=== PATIENT | female | born 1980 | race Caucasian/White ===

== ENCOUNTER 2018-01-21 17:48 | Emergency (ER) | payer MEDICAID, OTHER ==
[2018-01-21 19:10] LABS: HEMATOCRIT 35.4 % (37.0-47.0); HEMOGLOBIN 12.4 g/dl (12.0-16.0); MEAN CORPUSCULAR HEMOGLOBIN 28.1 pg (29.0-33.0); MEAN CORPUSCULAR VOLUME 80.3 fl (82.0-101.0); MEAN PLATELET VOLUME 10.2 fl (7.4-10.4); PLATELET COUNT 177 10^3/UL (140-415); RED BLOOD COUNT 4.41 10^6/ul (4.20-5.40); RED CELL DISTRIBUTION WIDTH 14.1 % (11.5-14.5)
[2018-01-21 19:12] LABS: ADD MAN DIFF? YES; POSITIVE DIFF @See below
[2018-01-21] MEDS: SODIUM CHLORIDE 0.9% 1L BAG IV* (19:15)
[2018-01-21] MEDS: ACETAMINOPHEN 325 MG TAB PO (19:15)
[2018-01-21 19:20] LABS: PROTIME 13.3 Sec (11.9-14.9)
[2018-01-21 19:21] LABS: PARTIAL THROMBOPLASTIN TIME 31.8 Sec (25.0-35.0)
[2018-01-21 19:22] LABS: ADD UMIC YES; UR ASCORBIC ACID NEGATIVE (NEGATIVE); UR BACTERIA FEW /HPF (NONE SEEN); UR BILIRUBIN (Dip) NEGATIVE (NEGATIVE); UR BLOOD (Dip) 2+ mg/dL (NEGATIVE); UR CLARITY CLEAR (CLEAR); UR COLOR YELLOW (YELLOW); UR GLUCOSE (Dip) 3+ mg/dL (NEGATIVE); UR KETONES (Dip) 1+ mg/dL (NEGATIVE); UR LEUKOCYTE ESTERASE (Dip) NEGATIVE Leu/ul (NEGATIVE); UR NITRITE (Dip) NEGATIVE (NEGATIVE); UR RBC 11 /HPF (0-5); UR TOTAL PROTEIN (Dip) NEGATIVE (NEGATIVE); UR UROBILINOGEN (Dip) NEGATIVE (NEGATIVE); UR WBC 10 /HPF (0-5)
[2018-01-21 19:31] LABS: LACTIC ACID 1.7 mmol/L (0.5-2.0)
[2018-01-21 19:34] LABS: ALANINE AMINOTRANSFERASE 177 IU/L (13-69); ALBUMIN 3.5 g/dl (3.3-4.9); ALBUMIN/GLOBULIN RATIO 0.85; ALKALINE PHOSPHATASE 197 IU/L (42-121); ANION GAP 15 (8-16); ASPARTATE AMINO TRANSFERASE 128 IU/L (15-46); BILIRUBIN,INDIRECT 0.5 mg/dl (0-1.1); BILIRUBIN,TOTAL 0.5 mg/dl (0.2-1.3); BLOOD UREA NITROGEN 3 mg/dl (7-20); CALCIUM 8.3 mg/dl (8.4-10.2); CARBON DIOXIDE 20 mmol/L (21-31); CHLORIDE 99 mmol/L (97-110); CREATININE 0.54 mg/dl (0.44-1.00); GLUCOSE 252 mg/dl (70-220); POTASSIUM 3.7 mmol/L (3.5-5.1); SODIUM 130 mmol/L (135-144); TOTAL PROTEIN 7.6 g/dl (6.1-8.1)
[2018-01-21 19:44] LABS: TROPONIN-I 0.035 ng/ml (0.000-0.120)
[2018-01-21] MEDS: CEFTRIAXONE 1 GM/50 ML (PMX) 50 ML IVPB (20:05)
[2018-01-21 20:44] LABS: BAND NEUTROPHILS #M 0.5 10^3/ul (0.0-0.6); BAND NEUTROPHILS % (M) 9 % (0-4); EOSINOPHILS % (M) 2 % (0-7); GIANT THROMBO% (M) 1 % (0-0); LYMPHOCYTES #M 0.9 10^3/ul (0.8-2.9); LYMPHOCYTES % (M) 16 % (15-51); METAMYELOCYTES %M 1 % (0-0); MONOCYTE #M 0.2 10^3/ul (0.3-0.9); MONOCYTES % (M) 4 % (0-11); PLATELET ESTIMATE NORMAL; REACTIVE LYMPHOCYTES #M 0.1 10^3/ul (0.0-0.0); REACTIVE LYMPHOCYTES% (M) 2 % (0-0); SEGMENTED NEUTROPHILS (M) % 66 % (39-77); SMUDGE%M 5 % (0-0)
[2018-01-21] MEDS: metroNIDAZOLE 500 MG/NS (PMX) 100 ML IVPB (21:30)
[2018-01-21 22:49] LABS: LACTIC ACID 1.1 mmol/L (0.5-2.0)
== END 2018-01-21 22:29 | disposition home or self-care (01) ==
LOC: E/R 17:48
DX: K57.32 Diverticulitis of large intestine without perforation or abscess without bleeding (principal); N30.90 Cystitis, unspecified without hematuria; E11.9 Type 2 diabetes mellitus without complications; I10 Essential (primary) hypertension; R10.9 Unspecified abdominal pain; Z79.84 Long term (current) use of oral hypoglycemic drugs
CPT/HCPCS: 36415; 71045; 74176; 80053; 81001; 81025; 83605; 84484; 85025; 85610; 85730; 87040; 87086; 93005; 96374; 96375; 99285-25

== ENCOUNTER 2018-03-01 11:05 | Inpatient (IN) | payer MEDICAID ==
[2018-03-01] MEDS: morphine 4 MG/ML VIAL IV (12:04)
[2018-03-01] MEDS: ONDANSETRON 4 MG INJ IV (12:04)
[2018-03-01] MEDS: SODIUM CHLORIDE 0.9% 1L BAG IV* (12:04)
[2018-03-01 12:09] LABS: ADD MAN DIFF? NO
[2018-03-01 12:17] LABS: ADD UMIC YES; UR ASCORBIC ACID NEGATIVE (NEGATIVE); UR BILIRUBIN (Dip) NEGATIVE (NEGATIVE); UR BLOOD (Dip) 1+ mg/dL (NEGATIVE); UR CLARITY CLEAR (CLEAR); UR COLOR YELLOW (YELLOW); UR GLUCOSE (Dip) 3+ mg/dL (NEGATIVE); UR KETONES (Dip) 1+ mg/dL (NEGATIVE); UR LEUKOCYTE ESTERASE (Dip) NEGATIVE Leu/ul (NEGATIVE); UR NITRITE (Dip) NEGATIVE (NEGATIVE); UR RBC 0 /HPF (0-5); UR SPECIFIC GRAVITY (Dip) 1.022 (1.003-1.030); UR TOTAL PROTEIN (Dip) NEGATIVE (NEGATIVE); UR UROBILINOGEN (Dip) NEGATIVE (NEGATIVE); UR WBC 1 /HPF (0-5)
[2018-03-01 12:20] LABS: BASOPHILS % 0.2 % (0.0-2.0); EOSINOPHILS % 0.2 % (0.0-7.0); HEMATOCRIT 40.9 % (37.0-47.0); LYMPHOCYTES # 1.7 10^3/ul (0.8-2.9); MEAN CORPUSCULAR HEMOGLOBIN 27.5 pg (29.0-33.0); MEAN CORPUSCULAR HGB CONC 34.2 g/dl (32.0-37.0); MEAN CORPUSCULAR VOLUME 80.4 fl (82.0-101.0); MONOCYTE # 1.1 10^3/ul (0.3-0.9); MONOCYTES % 6.9 % (0.0-11.0); NEUTROPHIL # 12.5 10^3/ul (1.6-7.5); NEUTROPHILS % 80.9 % (39.0-77.0); PLATELET COUNT 232 10^3/UL (140-415); RED BLOOD COUNT 5.09 10^6/ul (4.20-5.40); RED CELL DISTRIBUTION WIDTH 13.4 % (11.5-14.5)
[2018-03-01 12:20] LABS: WHITE BLOOD COUNT 15.4 10^3/ul (4.8-10.8)
[2018-03-01 12:59] LABS: ALANINE AMINOTRANSFERASE 25 IU/L (13-69); ALBUMIN 3.7 g/dl (3.3-4.9); ALKALINE PHOSPHATASE 110 IU/L (42-121); ANION GAP 20 (8-16); ASPARTATE AMINO TRANSFERASE 18 IU/L (15-46); BILIRUBIN,INDIRECT 1.1 mg/dl (0-1.1); BILIRUBIN,TOTAL 1.1 mg/dl (0.2-1.3); BLOOD UREA NITROGEN 12 mg/dl (7-20); CALCIUM 9.8 mg/dl (8.4-10.2); CARBON DIOXIDE 23 mmol/L (21-31); CHLORIDE 96 mmol/L (97-110); CREATININE 0.56 mg/dl (0.44-1.00); LIPASE 53 U/L (23-300); POTASSIUM 4.3 mmol/L (3.5-5.1); SODIUM 135 mmol/L (135-144); TOTAL PROTEIN 8.3 g/dl (6.1-8.1)
[2018-03-01 13:04] LABS: GLUCOSE 429 mg/dl (70-220)
[2018-03-01] MEDS ORDERED: ACETAMINOPHEN 325 MG TAB PO (14:00)
[2018-03-01] MEDS ORDERED: ONDANSETRON 4 MG INJ IV (14:00)
[2018-03-01] MEDS: INSULIN LISPRO 100 UNIT/ML VIAL SC (14:07)
[2018-03-01] MEDS: PIPER-TAZO 3.375 GM IV (PMX) 100 ML IVPB ×2 (14:10→21:21)
[2018-03-01 14:34] LABS: LACTIC ACID 1.4 mmol/L (0.5-2.0)
[2018-03-01] MEDS ORDERED: NACL 0.9% 3 ML SYG IV (15:30)
[2018-03-01] MEDS: DEXTROSE 5%-0.45% NACL 1,000 ML IV (16:24)
[2018-03-01] MEDS: morphine 2 MG INJ IV ×2 (17:27→22:31)
[2018-03-01 17:58] LABS: LACTIC ACID 1.1 mmol/L (0.5-2.0)
[2018-03-01] MEDS: INSULIN ASPART [NOVOLOG] 3 ML PEN SC ×2 (18:07→21:20)
[2018-03-01] MEDS: INSULIN GLARGINE [LANTus] (100 UNITS/ML) SYG SC (21:21)
[2018-03-01] MEDS: IOHEXOL 14.3 MG(I)/ML (ADULT) BTL PO (22:34)
[2018-03-02] MEDS: IOHEXOL 300MG/ML 150 ML BTL ×2 (00:22→01:24)
[2018-03-02] MEDS: SOD CHLORIDE 0.9% 100 ML (00:22)
[2018-03-02] MEDS: KETOROLAC 15 MG INJ IV ×2 (01:58→20:41)
[2018-03-02] MEDS: morphine 2 MG INJ IV ×3 (03:04→18:15)
[2018-03-02] MEDS: PIPER-TAZO 3.375 GM IV (PMX) 100 ML IVPB ×3 (05:12→22:08)
[2018-03-02] MEDS: DEXTROSE 5%-0.45% NACL 1,000 ML IV ×3 (05:12→20:33)
[2018-03-02] MEDS: DIATR MEGLU/DIATRIZOATE SODIUM 120 ML BTL (05:59)
[2018-03-02 06:01] LABS: ADD MAN DIFF? NO
[2018-03-02 06:03] LABS: WHITE BLOOD COUNT 9.7 10^3/ul (4.8-10.8)
[2018-03-02 06:03] LABS: BASOPHILS % 0.2 % (0.0-2.0); EOSINOPHILS # 0.1 10^3/ul (0.0-0.5); EOSINOPHILS % 0.5 % (0.0-7.0); HEMATOCRIT 33.7 % (37.0-47.0); HEMOGLOBIN 11.4 g/dl (12.0-16.0); LYMPHOCYTES # 1.4 10^3/ul (0.8-2.9); LYMPHOCYTES % 14.4 % (15.0-51.0); MEAN CORPUSCULAR HEMOGLOBIN 27.6 pg (29.0-33.0); MEAN CORPUSCULAR HGB CONC 33.8 g/dl (32.0-37.0); MEAN CORPUSCULAR VOLUME 81.6 fl (82.0-101.0); MEAN PLATELET VOLUME 10.2 fl (7.4-10.4); MONOCYTE # 0.7 10^3/ul (0.3-0.9); NEUTROPHIL # 7.5 10^3/ul (1.6-7.5); NEUTROPHILS % 77.4 % (39.0-77.0); PLATELET COUNT 215 10^3/UL (140-415); RED BLOOD COUNT 4.13 10^6/ul (4.20-5.40); RED CELL DISTRIBUTION WIDTH 13.4 % (11.5-14.5)
[2018-03-02 06:21] LABS: INR 1.08; PROTIME 14.1 Sec (11.9-14.9); PT RATIO 1.1
[2018-03-02 06:31] LABS: ALANINE AMINOTRANSFERASE 16 IU/L (13-69); ALBUMIN 2.9 g/dl (3.3-4.9); ALBUMIN/GLOBULIN RATIO 0.82; ALKALINE PHOSPHATASE 102 IU/L (42-121); ANION GAP 11 (8-16); ASPARTATE AMINO TRANSFERASE 14 IU/L (15-46); BLOOD UREA NITROGEN 6 mg/dl (7-20); CARBON DIOXIDE 26 mmol/L (21-31); CHLORIDE 104 mmol/L (97-110); CREATININE 0.49 mg/dl (0.44-1.00); GLUCOSE 252 mg/dl (70-220); POTASSIUM 3.7 mmol/L (3.5-5.1); SODIUM 137 mmol/L (135-144); TOTAL PROTEIN 6.4 g/dl (6.1-8.1)
[2018-03-02 06:35] LABS: HEMOGLOBIN A1C 10.4 % (0-5.9)
[2018-03-02] MEDS: INSULIN ASPART [NOVOLOG] 3 ML PEN SC ×4 (08:58→20:47)
[2018-03-02] MEDS: ENOXAPARIN 30 MG/0.3 ML SYG SC (08:58)
[2018-03-02] MEDS ORDERED: GLUCOSE GEL 15 GRAM TUBE PO ×2 (14:00)
[2018-03-02] MEDS ORDERED: GLUCOSE GEL 15 GRAM TUBE BUCCAL (14:00)
[2018-03-02] MEDS ORDERED: GLUCAGON 1 MG INJ IM (14:00)
[2018-03-02] MEDS ORDERED: DEXTROSE 50% 50 ML SYRINGE IV ×2 (14:00)
[2018-03-02] MEDS: INSULIN GLARGINE [LANTus] (100 UNITS/ML) SYG SC (20:48)
[2018-03-03] MEDS: morphine 2 MG INJ IV ×3 (01:16→17:43)
[2018-03-03] MEDS: KETOROLAC 15 MG INJ IV ×3 (04:11→19:46)
[2018-03-03 06:03] LABS: WHITE BLOOD COUNT 8.9 10^3/ul (4.8-10.8)
[2018-03-03 06:03] LABS: HEMATOCRIT 33.7 % (37.0-47.0); HEMOGLOBIN 11.5 g/dl (12.0-16.0); MEAN CORPUSCULAR HEMOGLOBIN 27.8 pg (29.0-33.0); MEAN CORPUSCULAR HGB CONC 34.1 g/dl (32.0-37.0); MEAN CORPUSCULAR VOLUME 81.4 fl (82.0-101.0); MEAN PLATELET VOLUME 10.1 fl (7.4-10.4); RED BLOOD COUNT 4.14 10^6/ul (4.20-5.40); RED CELL DISTRIBUTION WIDTH 13.2 % (11.5-14.5)
[2018-03-03 06:04] LABS: ADD MAN DIFF? YES; PLATELET COUNT 263 10^3/UL (140-415); POSITIVE DIFF @See below
[2018-03-03] MEDS: PIPER-TAZO 3.375 GM IV (PMX) 100 ML IVPB (06:08)
[2018-03-03 06:18] LABS: ANION GAP 14 (8-16); BLOOD UREA NITROGEN 5 mg/dl (7-20); CALCIUM 8.4 mg/dl (8.4-10.2); CARBON DIOXIDE 26 mmol/L (21-31); CHLORIDE 102 mmol/L (97-110); CREATININE 0.45 mg/dl (0.44-1.00); GLUCOSE 239 mg/dl (70-220); MAGNESIUM 1.9 mg/dl (1.7-2.5); POTASSIUM 3.6 mmol/L (3.5-5.1); SODIUM 138 mmol/L (135-144)
[2018-03-03] MEDS ORDERED: VANCOMYCIN IV PER PHARMACY XX (06:30)
[2018-03-03] MEDS: DEXTROSE 5%-0.45% NACL 1,000 ML IV ×2 (07:16→15:52)
[2018-03-03 07:41] LABS: ANISOCYTOSIS 1+ (0-0); BAND NEUTROPHILS #M 0.2 10^3/ul (0.0-0.6); BAND NEUTROPHILS % (M) 3 % (0-4); EOSINOPHILS % (M) 1 % (0-7); LYMPHOCYTES #M 1.7 10^3/ul (0.8-2.9); LYMPHOCYTES % (M) 20 % (15-51); MICROCYTOSIS 1+ (0-0); MONOCYTE #M 0.5 10^3/ul (0.3-0.9); MONOCYTES % (M) 6 % (0-11); PLATELET ESTIMATE NORMAL; SEG NEUT #M 6.2 10^3/ul (1.6-7.5); SEGMENTED NEUTROPHILS (M) % 70 % (39-77); SMUDGE%M 18 % (0-0)
[2018-03-03] MEDS: ENOXAPARIN 30 MG/0.3 ML SYG SC (08:43)
[2018-03-03] MEDS: INSULIN ASPART [NOVOLOG] 3 ML PEN SC ×4 (08:47→20:12)
[2018-03-03] MEDS: VANCOMYCIN 1.5 GM in SOD CHLORIDE 0.9% 250 ML IVPB (10:14)
[2018-03-03] MEDS: MEROPENEM 1 GM/50ML(PMX) 50 ML IVPB ×2 (13:49→21:19)
[2018-03-03] MEDS: VANCOMYCIN 1 GM 250 ML IVPB (17:34)
[2018-03-03] MEDS: HYDROCODONE/APAP (5/325) TAB PO (19:46)
[2018-03-03] MEDS: INSULIN GLARGINE [LANTus] (100 UNITS/ML) SYG SC (20:15)
[2018-03-04] MEDS: VANCOMYCIN 1 GM 250 ML IVPB ×2 (01:51→10:18)
[2018-03-04] MEDS: KETOROLAC 15 MG INJ IV ×3 (01:52→16:01)
[2018-03-04] MEDS: HYDROCODONE/APAP (5/325) TAB PO ×3 (01:52→18:04)
[2018-03-04] MEDS: DEXTROSE 5%-0.45% NACL 1,000 ML IV ×3 (03:16→23:16)
[2018-03-04] MEDS: MEROPENEM 1 GM/50ML(PMX) 50 ML IVPB ×3 (06:52→21:40)
[2018-03-04] MEDS: INSULIN ASPART [NOVOLOG] 3 ML PEN SC ×6 (08:50→20:44)
[2018-03-04] MEDS: ENOXAPARIN 30 MG/0.3 ML SYG SC (08:54)
[2018-03-04 09:53] LABS: VANCOMYCIN,TROUGH 9.8 ug/ml (10.0-20.0)
[2018-03-04] MEDS: morphine 2 MG INJ IV ×2 (13:01→22:27)
[2018-03-04] MEDS: VANCOMYCIN 1.25 GM in SOD CHLORIDE 0.9% 250 ML IVPB (17:41)
[2018-03-04] MEDS: INSULIN GLARGINE [LANTus] (100 UNITS/ML) SYG SC (20:45)
[2018-03-05] MEDS: VANCOMYCIN 1.25 GM in SOD CHLORIDE 0.9% 250 ML IVPB ×3 (01:59→17:58)
[2018-03-05] MEDS: morphine 2 MG INJ IV ×2 (03:31→08:19)
[2018-03-05] MEDS: MEROPENEM 1 GM/50ML(PMX) 50 ML IVPB ×3 (05:51→22:37)
[2018-03-05] MEDS: DEXTROSE 5%-0.45% NACL 1,000 ML IV ×2 (05:52→09:16)
[2018-03-05] MEDS: INSULIN ASPART [NOVOLOG] 3 ML PEN SC ×7 (08:00→21:00)
[2018-03-05] MEDS: ACETAMINOPHEN 325 MG TAB PO (08:05)
[2018-03-05] MEDS: ENOXAPARIN 30 MG/0.3 ML SYG SC (08:23)
[2018-03-05] MEDS: MIDAZOLAM 1 MG/ML 2 ML INJ (12:20)
[2018-03-05] MEDS: FENTAnyl 50 MCG/ML VIAL (12:20)
[2018-03-05] MEDS: LIDOCAINE 1% (MPF) 5 ML VIAL (12:35)
[2018-03-05] MEDS: SOD CHLORIDE 0.9% 1,000 ML IV ×2 (13:53→21:04)
[2018-03-05] MEDS: HYDROCODONE/APAP (5/325) TAB PO ×2 (14:02→20:49)
[2018-03-05 17:32] LABS: VANCOMYCIN,TROUGH 7.9 ug/ml (10.0-20.0)
[2018-03-05] MEDS: INSULIN GLARGINE [LANTus] (100 UNITS/ML) SYG SC (21:03)
[2018-03-06] MEDS: VANCOMYCIN 1.25 GM in SOD CHLORIDE 0.9% 250 ML IVPB ×3 (02:01→18:31)
[2018-03-06] MEDS: MEROPENEM 1 GM/50ML(PMX) 50 ML IVPB ×3 (05:09→22:03)
[2018-03-06] MEDS: HYDROCODONE/APAP (5/325) TAB PO ×3 (05:09→18:41)
[2018-03-06 05:56] LABS: BLOOD UREA NITROGEN 3 mg/dl (7-20)
[2018-03-06] MEDS: SOD CHLORIDE 0.9% 1,000 ML IV ×2 (08:00→15:54)
[2018-03-06] MEDS: INSULIN ASPART [NOVOLOG] 3 ML PEN SC ×7 (08:00→20:33)
[2018-03-06] MEDS: ENOXAPARIN 30 MG/0.3 ML SYG SC (08:41)
[2018-03-06 18:10] LABS: VANCOMYCIN,TROUGH 15.3 ug/ml (10.0-20.0)
[2018-03-06] MEDS: INSULIN GLARGINE [LANTus] (100 UNITS/ML) SYG SC (20:37)
[2018-03-07] MEDS: HYDROCODONE/APAP (5/325) TAB PO ×3 (00:43→19:55)
[2018-03-07] MEDS: VANCOMYCIN 1.25 GM in SOD CHLORIDE 0.9% 250 ML IVPB (01:54)
[2018-03-07] MEDS: SOD CHLORIDE 0.9% 1,000 ML IV ×3 (04:00→23:06)
[2018-03-07] MEDS: MEROPENEM 1 GM/50ML(PMX) 50 ML IVPB ×3 (06:00→22:00)
[2018-03-07] MEDS: ENOXAPARIN 30 MG/0.3 ML SYG SC (08:31)
[2018-03-07] MEDS: INSULIN ASPART [NOVOLOG] 3 ML PEN SC ×7 (08:32→20:27)
[2018-03-07] MEDS: morphine 2 MG INJ IV (15:32)
[2018-03-07] MEDS: INSULIN GLARGINE [LANTus] (100 UNITS/ML) SYG SC (20:27)
[2018-03-08] MEDS: MEROPENEM 1 GM/50ML(PMX) 50 ML IVPB ×4 (01:13→23:26)
[2018-03-08] MEDS: SOD CHLORIDE 0.9% 1,000 ML IV ×4 (03:30→20:00)
[2018-03-08] MEDS: HYDROCODONE/APAP (5/325) TAB PO ×3 (06:30→19:58)
[2018-03-08] MEDS: ENOXAPARIN 30 MG/0.3 ML SYG SC (08:45)
[2018-03-08] MEDS: INSULIN ASPART [NOVOLOG] 3 ML PEN SC ×7 (08:46→20:19)
[2018-03-08] MEDS ORDERED: VANCOMYCIN IV PER PHARMACY XX (11:00)
[2018-03-08] MEDS: VANCOMYCIN 1.25 GM in SOD CHLORIDE 0.9% 250 ML IVPB ×2 (13:43→20:17)
[2018-03-08] MEDS: FLUCONAZOLE 100 MG TAB PO (16:53)
[2018-03-08] MEDS: INSULIN GLARGINE [LANTus] (100 UNITS/ML) SYG SC (20:20)
[2018-03-09] MEDS: HYDROCODONE/APAP (5/325) TAB PO ×3 (03:09→19:03)
[2018-03-09] MEDS: MEROPENEM 1 GM/50ML(PMX) 50 ML IVPB ×3 (05:11→20:57)
[2018-03-09] MEDS: SOD CHLORIDE 0.9% 1,000 ML IV ×2 (05:17→12:21)
[2018-03-09] MEDS: VANCOMYCIN 1.25 GM in SOD CHLORIDE 0.9% 250 ML IVPB ×3 (05:49→21:54)
[2018-03-09 07:54] LABS: CREATININE 0.46 mg/dl (0.44-1.00)
[2018-03-09 07:54] LABS: BLOOD UREA NITROGEN 6 mg/dl (7-20)
[2018-03-09] MEDS: INSULIN ASPART [NOVOLOG] 3 ML PEN SC ×7 (08:00→21:08)
[2018-03-09] MEDS: FLUCONAZOLE 100 MG TAB PO (08:32)
[2018-03-09] MEDS: ENOXAPARIN 30 MG/0.3 ML SYG SC (08:36)
[2018-03-09 20:54] LABS: VANCOMYCIN,TROUGH 17.5 ug/ml (10.0-20.0)
[2018-03-09] MEDS: INSULIN GLARGINE [LANTus] (100 UNITS/ML) SYG SC (21:07)
[2018-03-10] MEDS: SOD CHLORIDE 0.9% 1,000 ML IV ×2 (01:32→11:23)
[2018-03-10] MEDS: HYDROCODONE/APAP (5/325) TAB PO ×2 (05:12→22:04)
[2018-03-10] MEDS: MEROPENEM 1 GM/50ML(PMX) 50 ML IVPB ×3 (05:12→22:04)
[2018-03-10] MEDS: VANCOMYCIN 1.25 GM in SOD CHLORIDE 0.9% 250 ML IVPB (05:45)
[2018-03-10 07:08] LABS: ERYTHROCYTE SEDIMENTATION RATE 68 mm/Hr (0-20)
[2018-03-10 07:49] LABS: C-REACTIVE PROTEIN 2.7 mg/dl (0.0-0.9)
[2018-03-10 07:49] LABS: BLOOD UREA NITROGEN 8 mg/dl (7-20)
[2018-03-10] MEDS: INSULIN ASPART [NOVOLOG] 3 ML PEN SC ×7 (08:00→20:39)
[2018-03-10] MEDS: FLUCONAZOLE 100 MG TAB PO (09:10)
[2018-03-10] MEDS: ENOXAPARIN 30 MG/0.3 ML SYG SC (09:15)
[2018-03-10] MEDS: VANCOMYCIN 1 GM 250 ML IVPB ×2 (17:08→23:08)
[2018-03-10] MEDS: ACETAMINOPHEN 325 MG TAB PO (20:31)
[2018-03-10] MEDS: INSULIN GLARGINE [LANTus] (100 UNITS/ML) SYG SC (20:38)
[2018-03-11] MEDS: SOD CHLORIDE 0.9% 1,000 ML IV ×3 (02:43→18:20)
[2018-03-11] MEDS: MEROPENEM 1 GM/50ML(PMX) 50 ML IVPB ×3 (05:03→22:05)
[2018-03-11] MEDS: VANCOMYCIN 1 GM 250 ML IVPB ×3 (05:38→22:45)
[2018-03-11] MEDS: FLUCONAZOLE 100 MG TAB PO (08:49)
[2018-03-11] MEDS: ENOXAPARIN 30 MG/0.3 ML SYG SC (08:51)
[2018-03-11] MEDS: INSULIN ASPART [NOVOLOG] 3 ML PEN SC ×7 (08:52→20:52)
[2018-03-11] MEDS: HYDROCODONE/APAP (5/325) TAB PO ×2 (10:31→18:45)
[2018-03-11 14:58] LABS: VANCOMYCIN,TROUGH 15.4 ug/ml (10.0-20.0)
[2018-03-11] MEDS ORDERED: IOHEXOL 300MG/ML 150 ML BTL (18:51)
[2018-03-11] MEDS ORDERED: SOD CHLORIDE 0.9% 100 ML (18:51)
[2018-03-11] MEDS: INSULIN GLARGINE [LANTus] (100 UNITS/ML) SYG SC (20:52)
[2018-03-12] MEDS: SOD CHLORIDE 0.9% 1,000 ML IV ×2 (04:00→12:22)
[2018-03-12] MEDS: MEROPENEM 1 GM/50ML(PMX) 50 ML IVPB ×3 (05:38→20:45)
[2018-03-12] MEDS: HYDROCODONE/APAP (5/325) TAB PO ×2 (05:46→20:45)
[2018-03-12 06:25] LABS: BLOOD UREA NITROGEN 13 mg/dl (7-20)
[2018-03-12 06:25] LABS: CREATININE 0.55 mg/dl (0.44-1.00)
[2018-03-12] MEDS: VANCOMYCIN 1 GM 250 ML IVPB ×3 (06:28→22:26)
[2018-03-12] MEDS: INSULIN ASPART [NOVOLOG] 3 ML PEN SC ×7 (08:00→20:51)
[2018-03-12] MEDS: FLUCONAZOLE 100 MG TAB PO (08:32)
[2018-03-12] MEDS: ENOXAPARIN 30 MG/0.3 ML SYG SC (08:36)
[2018-03-12] MEDS ORDERED: LIDOCAINE 1% (MPF) 5 ML VIAL SC (15:00)
[2018-03-12] MEDS: INSULIN GLARGINE [LANTus] (100 UNITS/ML) SYG SC (21:06)
[2018-03-13 05:46] LABS: ADD MAN DIFF? NO
[2018-03-13 05:49] LABS: BASOPHILS % 0.3 % (0.0-2.0); EOSINOPHILS # 0.1 10^3/ul (0.0-0.5); EOSINOPHILS % 2.3 % (0.0-7.0); HEMATOCRIT 33.5 % (37.0-47.0); HEMOGLOBIN 11.4 g/dl (12.0-16.0); LYMPHOCYTES # 2.1 10^3/ul (0.8-2.9); LYMPHOCYTES % 33.5 % (15.0-51.0); MEAN CORPUSCULAR HEMOGLOBIN 27.5 pg (29.0-33.0); MEAN CORPUSCULAR VOLUME 80.9 fl (82.0-101.0); MEAN PLATELET VOLUME 9.1 fl (7.4-10.4); MONOCYTE # 0.5 10^3/ul (0.3-0.9); MONOCYTES % 7.6 % (0.0-11.0); NEUTROPHIL # 3.4 10^3/ul (1.6-7.5); NEUTROPHILS % 55.8 % (39.0-77.0); PLATELET COUNT 399 10^3/UL (140-415); RED BLOOD COUNT 4.14 10^6/ul (4.20-5.40); RED CELL DISTRIBUTION WIDTH 13.2 % (11.5-14.5)
[2018-03-13 05:49] LABS: WHITE BLOOD COUNT 6.2 10^3/ul (4.8-10.8)
[2018-03-13] MEDS: MEROPENEM 1 GM/50ML(PMX) 50 ML IVPB ×3 (05:50→22:41)
[2018-03-13] MEDS: SOD CHLORIDE 0.9% 1,000 ML IV ×3 (05:50→20:35)
[2018-03-13] MEDS: HYDROCODONE/APAP (5/325) TAB PO ×2 (05:52→20:35)
[2018-03-13] MEDS: VANCOMYCIN 1 GM 250 ML IVPB (06:52)
[2018-03-13 07:00] LABS: ANION GAP 11 (8-16); BLOOD UREA NITROGEN 12 mg/dl (7-20); CALCIUM 8.9 mg/dl (8.4-10.2); CARBON DIOXIDE 28 mmol/L (21-31); CHLORIDE 105 mmol/L (97-110); CREATININE 0.56 mg/dl (0.44-1.00); GLUCOSE 194 mg/dl (70-220); POTASSIUM 4.2 mmol/L (3.5-5.1); SODIUM 140 mmol/L (135-144)
[2018-03-13] MEDS: FLUCONAZOLE 100 MG TAB PO (08:16)
[2018-03-13] MEDS: INSULIN ASPART [NOVOLOG] 3 ML PEN SC ×7 (08:18→20:36)
[2018-03-13] MEDS: ENOXAPARIN 30 MG/0.3 ML SYG SC (08:19)
[2018-03-13] MEDS: AMPICILLIN 1 GM/NS (PMX) 50 ML IVPB ×2 (12:57→17:28)
[2018-03-13] MEDS ORDERED: AMPICILLIN 1 GM/NS (PMX) 50 ML IVPB (14:00)
[2018-03-13] MEDS: morphine 2 MG INJ IV (16:41)
[2018-03-13] MEDS: L ACIDOPHIL/B LACTIS/B LONGUM CAPSULE PO (20:36)
[2018-03-13] MEDS: INSULIN GLARGINE [LANTus] (100 UNITS/ML) SYG SC (20:44)
[2018-03-14] MEDS: AMPICILLIN 1 GM/NS (PMX) 50 ML IVPB ×3 (00:21→12:35)
[2018-03-14] MEDS: MEROPENEM 1 GM/50ML(PMX) 50 ML IVPB (05:20)
[2018-03-14] MEDS: HYDROCODONE/APAP (5/325) TAB PO (06:21)
[2018-03-14] MEDS: SOD CHLORIDE 0.9% 1,000 ML IV (06:22)
[2018-03-14] MEDS: INSULIN ASPART [NOVOLOG] 3 ML PEN SC ×4 (08:00→12:42)
[2018-03-14] MEDS: L ACIDOPHIL/B LACTIS/B LONGUM CAPSULE PO (08:38)
[2018-03-14] MEDS: FLUCONAZOLE 100 MG TAB PO (08:38)
[2018-03-14] MEDS: ENOXAPARIN 30 MG/0.3 ML SYG SC (08:46)
== END 2018-03-14 15:20 | DRG 392 ==
LOC: FTE 11:05 → 2NE 13:34
PROC: 0W9J30Z Drainage of Pelvic Cavity with Drainage Device, Percutaneous Approach (ICD-10-PCS; principal; 2018-03-05)
PROC: 02H633Z Insertion of Infusion Device into Right Atrium, Percutaneous Approach (ICD-10-PCS; 2018-03-13)
DX: K57.20 Diverticulitis of large intestine with perforation and abscess without bleeding (principal); R65.10 Systemic inflammatory response syndrome (SIRS) of non-infectious origin without acute organ dysfunction; E11.9 Type 2 diabetes mellitus without complications; E66.9 Obesity, unspecified; Z68.30 Body mass index [BMI] 30.0-30.9, adult; I10 Essential (primary) hypertension; M79.89 Other specified soft tissue disorders; B96.1 Klebsiella pneumoniae [K. pneumoniae] as the cause of diseases classified elsewhere; B96.20 Unspecified Escherichia coli [E. coli] as the cause of diseases classified elsewhere; B95.2 Enterococcus as the cause of diseases classified elsewhere; B96.5 Pseudomonas (aeruginosa) (mallei) (pseudomallei) as the cause of diseases classified elsewhere; B96.89 Other specified bacterial agents as the cause of diseases classified elsewhere; B37.9 Candidiasis, unspecified
CPT/HCPCS: 36415; 36569; 71045; 74176; 74177; 75989; 76937; 77012; 80048; 80053; 80202; 81001; 81025; 82565; 82962; 83036; 83605; 83690; 83735; 84520; 85025; 85610; 85651; 86140; 87040; 87070; 87075; 87086; 93005; 93971; 96374; 96375; 99291-25

== ENCOUNTER 2018-03-21 10:31 | Inpatient (IN) | payer MEDICAID ==
[2018-03-21 12:08] LABS: ADD MAN DIFF? NO
[2018-03-21] MEDS: SOD CHLORIDE 0.9% 1,000 ML IV (12:09)
[2018-03-21 12:13] LABS: BASOPHILS % 0.4 % (0.0-2.0); EOSINOPHILS # 0.1 10^3/ul (0.0-0.5); EOSINOPHILS % 1.3 % (0.0-7.0); HEMATOCRIT 34.9 % (37.0-47.0); HEMOGLOBIN 11.8 g/dl (12.0-16.0); LYMPHOCYTES # 1.9 10^3/ul (0.8-2.9); MEAN CORPUSCULAR HEMOGLOBIN 26.8 pg (29.0-33.0); MEAN CORPUSCULAR HGB CONC 33.8 g/dl (32.0-37.0); MEAN CORPUSCULAR VOLUME 79.3 fl (82.0-101.0); MEAN PLATELET VOLUME 9.2 fl (7.4-10.4); MONOCYTE # 0.6 10^3/ul (0.3-0.9); NEUTROPHIL # 4.5 10^3/ul (1.6-7.5); NEUTROPHILS % 62.7 % (39.0-77.0); PLATELET COUNT 383 10^3/UL (140-415); RED CELL DISTRIBUTION WIDTH 13.2 % (11.5-14.5)
[2018-03-21 12:13] LABS: WHITE BLOOD COUNT 7.1 10^3/ul (4.8-10.8)
[2018-03-21 12:16] LABS: ADD UMIC YES; UR ASCORBIC ACID NEGATIVE (NEGATIVE); UR BILIRUBIN (Dip) NEGATIVE (NEGATIVE); UR BLOOD (Dip) 1+ mg/dL (NEGATIVE); UR CLARITY CLEAR (CLEAR); UR COLOR YELLOW (YELLOW); UR GLUCOSE (Dip) NEGATIVE (NEGATIVE); UR KETONES (Dip) NEGATIVE (NEGATIVE); UR LEUKOCYTE ESTERASE (Dip) NEGATIVE Leu/ul (NEGATIVE); UR NITRITE (Dip) NEGATIVE (NEGATIVE); UR RBC 0 /HPF (0-5); UR SPECIFIC GRAVITY (Dip) 1.012 (1.003-1.030); UR SQUAMOUS EPITHELIAL CELL FEW /HPF (FEW); UR TOTAL PROTEIN (Dip) NEGATIVE (NEGATIVE); UR UROBILINOGEN (Dip) NEGATIVE (NEGATIVE); UR WBC 1 /HPF (0-5)
[2018-03-21] MEDS: IOHEXOL 300MG/ML 150 ML BTL (12:26)
[2018-03-21] MEDS: SOD CHLORIDE 0.9% 100 ML (12:26)
[2018-03-21 12:33] LABS: ALANINE AMINOTRANSFERASE 19 IU/L (13-69); ALBUMIN 4.1 g/dl (3.3-4.9); ALBUMIN/GLOBULIN RATIO 0.95; ALKALINE PHOSPHATASE 93 IU/L (42-121); ANION GAP 11 (5-13); ASPARTATE AMINO TRANSFERASE 20 IU/L (15-46); BILIRUBIN,INDIRECT 0.4 mg/dl (0-1.1); BILIRUBIN,TOTAL 0.4 mg/dl (0.2-1.3); BLOOD UREA NITROGEN 10 mg/dl (7-20); CALCIUM 9.3 mg/dl (8.4-10.2); CARBON DIOXIDE 23 mmol/L (21-31); CHLORIDE 106 mmol/L (97-110); CREATININE 0.48 mg/dl (0.44-1.00); Estimated GFR > 60 mL/min (>60); GLUCOSE 159 mg/dl (70-220); LIPASE 200 U/L (23-300); POTASSIUM 4.3 mmol/L (3.5-5.1); SODIUM 140 mmol/L (135-144); TOTAL PROTEIN 8.4 g/dl (6.1-8.1)
[2018-03-21] MEDS ORDERED: ONDANSETRON 4 MG INJ IV ×2 (14:00→14:30)
[2018-03-21] MEDS ORDERED: ACETAMINOPHEN 325 MG TAB PO ×2 (14:00→14:30)
[2018-03-21] MEDS ORDERED: NACL 0.9% 3 ML SYG IV (14:30)
[2018-03-21] MEDS ORDERED: morphine 2 MG INJ IV (14:30)
[2018-03-21] MEDS ORDERED: DOCUSATE SODIUM 100 MG CAP PO (14:30)
[2018-03-21] MEDS ORDERED: ZOLPIDEM 5 MG TAB PO (14:30)
[2018-03-21] MEDS: PIPER-TAZO 3.375 GM IV (PMX) 100 ML IVPB (14:33)
[2018-03-21] MEDS ORDERED: GLUCOSE GEL 15 GRAM TUBE PO ×2 (15:00)
[2018-03-21] MEDS ORDERED: GLUCAGON 1 MG INJ IM (15:00)
[2018-03-21] MEDS ORDERED: GLUCOSE GEL 15 GRAM TUBE BUCCAL (15:00)
[2018-03-21] MEDS ORDERED: DEXTROSE 50% 50 ML SYRINGE IV ×2 (15:00)
[2018-03-21] MEDS: 1/2 NS + KCL 20 MEQ 1,000 ML IV (17:33)
[2018-03-21] MEDS: INSULIN ASPART [NOVOLOG] 3 ML PEN SC ×3 (17:56→21:00)
[2018-03-21] MEDS: ERTAPENEM SODIUM 1 GM in SOD CHLORIDE 0.9% 100 ML IVPB (17:58)
[2018-03-21] MEDS: INSULIN GLARGINE [LANTus] (100 UNITS/ML) SYG SC (22:47)
[2018-03-22] MEDS: ACCU-CHEK XX (02:00)
[2018-03-22] MEDS: 1/2 NS + KCL 20 MEQ 1,000 ML IV ×3 (04:27→18:46)
[2018-03-22 05:03] LABS: ADD MAN DIFF? NO
[2018-03-22 05:04] LABS: WHITE BLOOD COUNT 5.7 10^3/ul (4.8-10.8)
[2018-03-22 05:04] LABS: BASOPHILS % 0.5 % (0.0-2.0); EOSINOPHILS # 0.1 10^3/ul (0.0-0.5); EOSINOPHILS % 1.6 % (0.0-7.0); HEMATOCRIT 32.9 % (37.0-47.0); HEMOGLOBIN 10.9 g/dl (12.0-16.0); LYMPHOCYTES # 1.9 10^3/ul (0.8-2.9); LYMPHOCYTES % 32.7 % (15.0-51.0); MEAN CORPUSCULAR HEMOGLOBIN 26.3 pg (29.0-33.0); MEAN CORPUSCULAR HGB CONC 33.1 g/dl (32.0-37.0); MEAN CORPUSCULAR VOLUME 79.3 fl (82.0-101.0); MEAN PLATELET VOLUME 9.2 fl (7.4-10.4); MONOCYTE # 0.6 10^3/ul (0.3-0.9); MONOCYTES % 9.7 % (0.0-11.0); NEUTROPHIL # 3.1 10^3/ul (1.6-7.5); NEUTROPHILS % 55.1 % (39.0-77.0); PLATELET COUNT 289 10^3/UL (140-415); RED BLOOD COUNT 4.15 10^6/ul (4.20-5.40); RED CELL DISTRIBUTION WIDTH 13.2 % (11.5-14.5)
[2018-03-22 05:17] LABS: HEMOGLOBIN A1C 9.2 % (0-5.9)
[2018-03-22 05:34] LABS: ANION GAP 11 (5-13); BLOOD UREA NITROGEN 8 mg/dl (7-20); CARBON DIOXIDE 23 mmol/L (21-31); CHLORIDE 107 mmol/L (97-110); CREATININE 0.54 mg/dl (0.44-1.00); Estimated GFR > 60 mL/min (>60); GLUCOSE 102 mg/dl (70-220); MAGNESIUM 1.8 mg/dl (1.7-2.5); PHOSPHORUS 5.2 mg/dl (2.5-4.9); POTASSIUM 3.7 mmol/L (3.5-5.1); SODIUM 141 mmol/L (135-144)
[2018-03-22 05:43] LABS: IRON 111 ug/dl (35-150)
[2018-03-22 05:52] LABS: % IRON SATURATION 39 % SAT (22-52); TOTAL IRON BINDING CAPACITY 284 ug/dl (241-421)
[2018-03-22] MEDS: INSULIN ASPART [NOVOLOG] 3 ML PEN SC ×7 (07:50→20:29)
[2018-03-22] MEDS: SOD CHLORIDE 0.9% 500 ML (15:53)
[2018-03-22] MEDS: MIDAZOLAM 1 MG/ML 2 ML INJ (15:53)
[2018-03-22] MEDS: FENTAnyl 50 MCG/ML VIAL (15:53)
[2018-03-22] MEDS: LIDOCAINE 1% (MPF) 5 ML VIAL (16:00)
[2018-03-22] MEDS: IOHEXOL 300MG/ML 30 ML BTL (16:05)
[2018-03-22] MEDS: ERTAPENEM SODIUM 1 GM in SOD CHLORIDE 0.9% 100 ML IVPB (17:43)
[2018-03-22] MEDS: CIPROFLOXACIN 500 MG TAB PO (18:23)
[2018-03-22] MEDS: FLUCONAZOLE 100 MG TAB PO (18:23)
[2018-03-22] MEDS: INSULIN GLARGINE [LANTus] (100 UNITS/ML) SYG SC (20:27)
[2018-03-22] MEDS: AMOXICILLIN/CLAV 875 MG TAB PO (20:27)
[2018-03-23] MEDS: ACCU-CHEK XX (01:28)
[2018-03-23] MEDS: HYDROCODONE/APAP (5/325) TAB PO ×3 (02:20→20:41)
[2018-03-23] MEDS: 1/2 NS + KCL 20 MEQ 1,000 ML IV ×2 (05:08→15:59)
[2018-03-23] MEDS: CIPROFLOXACIN 500 MG TAB PO ×2 (05:12→18:14)
[2018-03-23] MEDS: INSULIN ASPART [NOVOLOG] 3 ML PEN SC ×7 (07:50→20:45)
[2018-03-23] MEDS: FLUCONAZOLE 100 MG TAB PO (08:31)
[2018-03-23] MEDS: AMOXICILLIN/CLAV 875 MG TAB PO ×2 (08:31→20:41)
[2018-03-23] MEDS: ERTAPENEM SODIUM 1 GM in SOD CHLORIDE 0.9% 100 ML IVPB (18:19)
[2018-03-23] MEDS: INSULIN GLARGINE [LANTus] (100 UNITS/ML) SYG SC (20:48)
[2018-03-24] MEDS: ACCU-CHEK XX (02:00)
[2018-03-24] MEDS: 1/2 NS + KCL 20 MEQ 1,000 ML IV ×2 (02:23→05:30)
[2018-03-24] MEDS: CIPROFLOXACIN 500 MG TAB PO (05:43)
[2018-03-24] MEDS: HYDROCODONE/APAP (5/325) TAB PO (05:51)
[2018-03-24] MEDS: INSULIN ASPART [NOVOLOG] 3 ML PEN SC ×4 (07:50→13:25)
[2018-03-24] MEDS: FLUCONAZOLE 100 MG TAB PO (08:57)
[2018-03-24] MEDS: AMOXICILLIN/CLAV 875 MG TAB PO (08:57)
== END 2018-03-24 15:23 | disposition home health service (06) | DRG 392 ==
LOC: E/R 10:31 → MS1 13:39
PROC: 0W2JX0Z Change Drainage Device in Pelvic Cavity, External Approach (ICD-10-PCS; principal; 2018-03-22)
DX: K57.20 Diverticulitis of large intestine with perforation and abscess without bleeding (principal); R65.10 Systemic inflammatory response syndrome (SIRS) of non-infectious origin without acute organ dysfunction; E11.65 Type 2 diabetes mellitus with hyperglycemia; E66.9 Obesity, unspecified; Z68.31 Body mass index [BMI] 31.0-31.9, adult; I10 Essential (primary) hypertension; D63.8 Anemia in other chronic diseases classified elsewhere; S30.821A Blister (nonthermal) of abdominal wall, initial encounter; X58.XXXA Exposure to other specified factors, initial encounter
CPT/HCPCS: 36415; 74177; 75984; 80048; 80053; 81001; 82962; 83036; 83540; 83605; 83690; 83735; 84100; 85025; 87040; 96360; 99285-25